=== PATIENT | male | born 1995 | race Caucasian/White ===

== ENCOUNTER 2018-05-25 16:32 | Emergency (ER) | payer OTHER ==
[2018-05-25] MEDS: NS 1,000 ML IV (17:45)
[2018-05-25] MEDS: ONDANSETRON 4MG/2ML VIAL (J2405) IV (17:45)
[2018-05-25 18:05] LABS: BASO % 0.4 % (0.0-1.0); EOS % 0.5 % (0.0-3.0); HEMATOCRIT 41.5 % (42.0-52.0); HEMOGLOBIN 14.2 g/dl (13.5-17.5); IMMATURE GRANULOCYTE % 0.2 % (0-3.0); LYMPH % 11.8 % (24.0-44.0); MEAN CORPUSCULAR HEMOGLOBIN 28.6 pg (27.0-33.0); MEAN CORPUSCULAR HGB CONC 34.2 g/dl (32.0-36.5); MEAN CORPUSCULAR VOLUME 83.7 fl (80.0-96.0); MONO # 0.8 10^3/uL (0.0-0.8); MONO % 9.4 % (0.0-5.0); NEUTROPHILS # 6.3 10^3/uL (1.8-7.7); NEUTROPHILS % 77.7 % (36.0-66.0); PLATELET COUNT, AUTOMATED 226 10^3/uL (150-450); RED BLOOD COUNT 4.96 10^6/uL (4.30-6.10); WHITE BLOOD COUNT 8.1 10^3/uL (4.0-10.0)
[2018-05-25 18:22] LABS: KETONE, URINE AUTO RFX TRACE mg/dL (NEGATIVE); LEUKOCYTE ESTERASE UR AUTO RFX NEGATIVE (NEGATIVE); MUCUS, URINE RFX SMALL (NEGATIVE); NITRITE, URINE AUTO RFX NEGATIVE (NEGATIVE); RBC, URINE AUTO RFX 1 /HPF (0-3); SPECIFIC GRAVITY UR AUTO RFX 1.027 (1.002-1.035); SQUAM EPITHELIAL CELL UR AURFX 0 /HPF (0-6); WBC, URINE AUTO RFX 1 /HPF (0-3)
[2018-05-25] MEDS: MORPHINE 2 MG/ML 1ML SYRINGE (J2270) IV (18:28)
[2018-05-25 18:35] LABS: ANION GAP 9 MEQ/L (8-16); BLOOD UREA NITROGEN 19 MG/DL (7-18); CALCIUM LEVEL 9.2 MG/DL (8.5-10.1); CARBON DIOXIDE LEVEL 26 MEQ/L (21-32); CHLORIDE LEVEL 105 MEQ/L (98-107); CREATININE FOR GFR 1.04 MG/DL (0.70-1.30); GLOMERULAR FILTRATION RATE > 60.0 (>60); GLUCOSE, FASTING 84 MG/DL (70-100); POTASSIUM SERUM 3.9 MEQ/L (3.5-5.1); SODIUM LEVEL 140 MEQ/L (136-145)
== END 2018-05-25 19:37 | disposition home or self-care (01) ==
LOC: M ED 16:32
DX: R51 Headache (principal); R42 Dizziness and giddiness; R11.0 Nausea; Z87.891 Personal history of nicotine dependence
CPT/HCPCS: J2405

== ENCOUNTER 2018-05-26 07:11 | Emergency (ER) | payer OTHER | END 2018-05-26 07:58 | disposition home or self-care (01) | LOC: M ED 07:11 | DX: J02.9 Acute pharyngitis, unspecified (principal); R51 Headache; Z87.19 Personal history of other diseases of the digestive system | CPT/HCPCS: 87880 ==

== ENCOUNTER 2020-02-23 10:29 | Emergency (ER) | payer OTHER ==
[~2020-02-23] VITALS: Ht 177.8 cm; Wt 103.2 kg
[~2020-02-23 10:29] MED LIST: IBUP-1022 PO; KEFL500C17 PO; SKEL800T97 PO
[2020-02-23] MEDS ORDERED: CONC18TA14 (10:53)
[2020-02-23] MEDS ORDERED: ISOVUE-370 76% 100ML VIAL As Ordered ONE (11:34)
[2020-02-23 11:57] LABS: HEMATOCRIT 41.7 % (42.0-52.0); HEMOGLOBIN 13.9 g/dl (13.5-17.5); MEAN CORPUSCULAR HEMOGLOBIN 28.1 pg (27.0-33.0); MEAN CORPUSCULAR HGB CONC 33.3 g/dl (32.0-36.5); MEAN CORPUSCULAR VOLUME 84.2 fl (80.0-96.0); PLATELET COUNT, AUTOMATED 276 10^3/uL (150-450); RED BLOOD COUNT 4.95 10^6/uL (4.30-6.10)
[2020-02-23 12:14] LABS: BLOOD UREA NITROGEN 9 MG/DL (7-18); CALCIUM LEVEL 8.9 MG/DL (8.5-10.1); CARBON DIOXIDE LEVEL 28 MEQ/L (21-32); CHLORIDE LEVEL 107 MEQ/L (98-107); CREATININE FOR GFR 0.82 MG/DL (0.70-1.30); GLOMERULAR FILTRATION RATE > 60.0 (>60); GLUCOSE, FASTING 95 MG/DL (70-100); SODIUM LEVEL 142 MEQ/L (136-145)
[2020-02-23] MEDS ORDERED: IBUPROFEN 800 MG TAB PO ONE (12:15)
--- NOTE | 2020-02-23 12:25 | REP ---
REASON FOR EXAM: Trauma. COMPARISON: 05/25/2018. TECHNIQUE: 4.5 mm contiguous transaxial sections were obtained from the skull base to the cerebral convexities with thin cuts through the posterior fossa without the administration of intravenous contrast. FINDINGS: The ventricles and sulci are consistent with the patient's age. There are no extra-axial fluid collections. There is no mass effect. The deep cerebral white matter is consistent with the patient's age. The orbital and petrous structures, cerebellopontine angles, and posterior fossa are unremarkable. The sella turcica, cavernous, and paracavernous structures are essentially unremarkable. The visualized portions of the paranasal sinuses and mastoid air cells are clear. Images of the skull base show no gross abnormality. IMPRESSION: Essentially unremarkable CT examination of the brain. No significant change from the prior exam. Electronically Signed by Cyril Velarde DO 02/23/2020 12:37 P
--- NOTE | 2020-02-23 12:30 | REP ---
REASON: Pain in the neck. PRIORS: None. Vertebral body height and alignment is within normal limits, however, there is a cervical kyphosis. The disc spaces are symmetric and well maintained. The facet joints are well aligned bilaterally. There is no acute fracture. There is no abnormal paraspinal soft tissue swelling. IMPRESSION: There is no fracture. There is a cervical kyphosis which could be secondary to muscular spasm, patient positioning, or a combination of both. Correlate clinically. Electronically Signed by Cyril Velarde DO 02/23/2020 12:38 P
--- NOTE | 2020-02-23 12:35 | REP ---
CT ABDOMEN AND PELVIS WITH IV CONTRAST: Visualized lung bases demonstrate no abnormality. The gallbladder is contracted. Spleen is normal in size with no laceration or hematoma. Adrenals, pancreas, and left kidney are unremarkable. There is a cyst of the lower right kidney posteriorly 1.4 cm. There is no hydronephrosis. There is no renal laceration or hematoma. Abdominal aorta is normal in caliber with no aneurysm. There is no adenopathy. There is no free air or free fluid. There is no bowel wall thickening. The appendix is normal. No pelvis mass or free fluid is seen. Urinary bladder is mildly distended and grossly unremarkable. Visualized osseous structures demonstrate no fracture. IMPRESSION: No acute abnormality is detected. Electronically Signed by Adam Ordaz MD 02/23/2020 02:57 P
[2020-02-23 13:12] VITALS: BP 127/65
--- NOTE | 2020-02-23 14:01 | REP ---
REASON: Pain after trauma. FINDINGS: No acute fracture or destructive osseous lesion. Electronically Signed by Cyril Velarde DO 02/23/2020 04:50 P
--- NOTE | 2020-02-23 14:02 | REP ---
REASON: Pain after trauma. FINDINGS: The hip joint space is symmetric and relatively well maintained. T here is no acute or destructive osseous lesion. Electronically Signed by Cyril Velarde DO 02/23/2020 04:50 P
== END 2020-02-23 13:20 | disposition home or self-care (01) ==
LOC: M ED 10:29
DX: S16.1XXA Strain of muscle, fascia and tendon at neck level, initial encounter (principal); M25.552 Pain in left hip; R10.12 Left upper quadrant pain; V47.5XXA Car driver injured in collision with fixed or stationary object in traffic accident, initial encounter; Y92.410 Unspecified street and highway as the place of occurrence of the external cause; F90.9 Attention-deficit hyperactivity disorder, unspecified type; E78.5 Hyperlipidemia, unspecified; Z79.899 Other long term (current) drug therapy
CPT/HCPCS: 36415; 70450; 72125; 73000; 73502; 74177; 80048; 85027; 86850; 86900; 86901; 99284; Q9967

== ENCOUNTER 2020-08-17 09:46 | Emergency (ER) | payer OTHER ==
[~2020-08-17] VITALS: Ht 177.8 cm; Wt 103.1 kg
[~2020-08-17 09:46] MED LIST changes: +CONC18TA14
[2020-08-17] MEDS ORDERED: ADDE10CA3 PO (09:55)
[2020-08-17] MEDS ORDERED: ADDE20CA3 PO (09:55)
[2020-08-17 10:47] LABS: BASO % 0.3 % (0.0-1.0); EOS # 0.1 10^3/uL (0.0-0.5); EOS % 0.6 % (0.0-3.0); HEMATOCRIT 44.5 % (42.0-52.0); HEMOGLOBIN 14.2 g/dl (13.5-17.5); LYMPH # 1.6 10^3/uL (1.5-5.0); LYMPH % 16.5 % (24.0-44.0); MEAN CORPUSCULAR HEMOGLOBIN 27.2 pg (27.0-33.0); MEAN CORPUSCULAR HGB CONC 31.9 g/dl (32.0-36.5); MEAN CORPUSCULAR VOLUME 85.1 fl (80.0-96.0); MONO # 0.7 10^3/uL (0.0-0.8); MONO % 7.8 % (0.0-5.0); NEUTROPHILS % 74.5 % (36.0-66.0); PLATELET COUNT, AUTOMATED 292 10^3/uL (150-450); RED BLOOD COUNT 5.23 10^6/uL (4.30-6.10); WHITE BLOOD COUNT 9.5 10^3/uL (4.0-10.0)
[2020-08-17 11:41] VITALS: BP 119/62
[2020-08-17] MEDS ORDERED: BACT800T5 PO (11:54)
== END 2020-08-17 12:19 | disposition home or self-care (01) ==
LOC: M ED 09:46
DX: L05.91 Pilonidal cyst without abscess (principal); E78.5 Hyperlipidemia, unspecified; F90.9 Attention-deficit hyperactivity disorder, unspecified type; Z79.899 Other long term (current) drug therapy